=== PATIENT | female | born 1970 | race African-American/Black ===

== ENCOUNTER 2020-01-09 14:47 | Emergency (ER) | payer MEDICARE, MEDICAID ==
[~2020-01-09] VITALS: Ht 180.3 cm; Wt 58.5 kg
[2020-01-09] MEDS ORDERED: PROTONIX20 MG ORAL (15:07)
[2020-01-09] MEDS ORDERED: NORCO 5-325 TA1 EACH ORAL (15:07)
[2020-01-09] MEDS ORDERED: VITAMIN C500 M1 ORAL (15:07)
[2020-01-09] MEDS ORDERED: ONDANSETRON ODT4 MG BC (15:07)
[2020-01-09] MEDS ORDERED: BENADRYL ALLERG25 M1 PO (15:07)
[2020-01-09] MEDS ORDERED: ALBUTEROL0.63 MG/3 HHN (15:07)
[2020-01-09] MEDS ORDERED: COLACE100 MG ORAL (15:07)
[2020-01-09] MEDS ORDERED: MULTIVITAMINS1 EAC8 ORAL (15:07)
[2020-01-09] MEDS ORDERED: MILK OF MA400 MG/51 ORAL (15:07)
[2020-01-09] MEDS ORDERED: FERROUS SULFAT325 MG ORAL (15:07)
[2020-01-09] MEDS ORDERED: TYLENOL EXTRA500 MG ORAL (15:07)
[2020-01-09] MEDS ORDERED: ZINC-220220 MG ORAL (15:07)
[2020-01-09] MEDS ORDERED: SENNA PLUS 8.61 EACH PO (15:07)
[2020-01-09] MEDS ORDERED: ACETAMINOPHEN325 M1 ORAL (15:07)
--- NOTE | 2020-01-09 15:07 | Emergency Room Report ---
History of Present Illness General Chief Complaint: Pain Source: EMS Present Illness HPI 49-year-old female with history of seizures currently controlled, anemia currently controlled, generalized body, and gastric bypass here from assisted assisted living facility brought in by paramedics complaining of generalized body pain. Denies any fall or injury. Reports that the hydrocodone that they gave her at the facility does not help her with pain.. Reports that she has been unable to eat due to worsening acid reflux. Patient is currently on Protonix and Zofran. Also icterus of both eyes noted. Patient reports that she has liver issues does not know which kind. Patient reports that she has history of heavy drinking alcohol. Denies any recent alcohol intake. Denies any recent seizure activity. Denies all other histories. Denies chest pain, shortness of breath, palpitation, headache and dizziness. Complains of generalized ache at this time. Allergies: Coded Allergies: MORPHINE (Verified Allergy, Unknown, 01/09/20) Patient History Past Medical History: see triage record Past Surgical History: none Pertinent Family History: none Now: No Immunizations: UTD Reviewed Nursing Documentation: PMH: Agreed; PSxH: Agreed Nursing Documentation-PMH History Of Psychiatric Problem: Yes - MAJOR DEPRESSIVE DISORDER Review of Systems All Other Systems: negative except mentioned in HPI Physical Exam Vital Signs Date Time Temp Pulse Resp B/P (MAP) Pulse Ox O2 Delivery O2 Flow Rate FiO2 01/09/20 14:50 98.2 82 18 144/91 (108) 96 General Appearance: alert, GCS 15, non-toxic, mild distress Head: normocephalic, atraumatic Eyes: bilateral eye normal inspection, bilateral eye PERRL ENT: hearing grossly normal, normal pharynx, no angioedema, normal voice Neck: full range of motion, supple/symm/no masses Respiratory: chest non-tender, lungs clear, normal breath sounds, no rhonchi, no retraction, no wheezing, speaking full sentences Cardiovascular #1: regular rate, rhythm, no edema, no murmur, normal capillary refill Cardiovascular #2: 2+ carotid (R), 2+ carotid (L), 2+ radial (R), 2+ radial (L) , 2+ dorsalis pedis (R), 2+ dorsalis pedis (L) Gastrointestinal: normal bowel sounds, non tender, soft, non-distended, no guarding, no rebound Rectal: deferred Genitourinary: no CVA tenderness Musculoskeletal: back normal, no calf tenderness, non-tender Neurologic: alert, motor strength/tone normal, oriented, oriented x3, sensory intact, responsive, speech normal Psychiatric: judgement/insight normal, memory normal, mood/affect normal, no suicidal/homicidal ideation Skin: no rash Lymphatic: no adenopathy Medical Decision Making PA Attestation All diagnoses and treatment plans were reviewed and discussed with my supervising physician Dr. Schmid Diagnostic Impression: Primary Impression: Generalized pain Additional Impressions: Intrahepatic bile duct dilation Esophagitis Anemia ER Course 49-year-old female with history of seizures currently controlled, anemia currently controlled, generalized body, and gastric bypass here from assisted assisted living facility brought in by paramedics complaining of generalized body pain. Denies any fall or injury. Reports that the hydrocodone that they gave her at the facility does not help her with pain.. Reports that she has been unable to eat due to worsening acid reflux. Patient is currently on Protonix and Zofran. Also icterus of both eyes noted. Patient reports that she has liver issues does not know which kind. Patient reports that she has history of heavy drinking alcohol. Denies any recent alcohol intake. Denies any recent seizure activity. Denies all other histories. Denies chest pain, shortness of breath, palpitation, headache and dizziness. Complains of generalized ache at this time. Ddx considered but are not limited to: appendicitis, cholecystis, gastritis, gastroenteritis, UTI, pyelonephritis, SBO, diverticulitis, influenza with GI manifestation, ND, complication with gastric bypass, esophagitis, liver cirrhosis, anemia Vital signs: are WNL, pt. is afebrile H&PE are most consistent with: Iron deficiency anemia, generalized pain, intrahepatic bile duct dilation, esophagitis ORDERS: abdominal CT, abdominal pain set, EKG, head CT no contrast ED INTERVENTIONS: 1 mg of Dilaudid, NS bolus, Pepcid, Zofran DISCHARGE: At this time pt. is stable for d/c to home. Will provide printed patient care instructions, and any necessary prescriptions. Care plan and follow up instructions have been discussed with the patient prior to discharge. Take medication as directed, follow-up with your primary care provider, at this time cannot write for more Dilaudid, you need to follow-up with your endocrinology physician and pain management. Also your anemia is controlled as you are taking ferrous sulfate and you had a recent transfusion. If worsening symptoms return to the emergency room. CT/MRI/US Diagnostic Results CT/MRI/US Diagnostic Results #1: Imaging Test Ordered: CT abdomen pelvis with contrast Impression FINDINGS: Lung bases demonstrate no acute infiltrate. Mild dependent atelectasis only. Redemonstrated gastric bypass. The excluded stomach is distended. The wall is thickened, between the fundal region in the gastric body (series 3, image 42). The lumen is distended by gas and inspissated debris. Question bezoar. No perforation. Thickened lower esophagus. Possible esophagitis. Fecal retention suggesting constipation. No small bowel obstruction. Capacious jejunojejunal anastomosis is a common finding after gastric bypass. The appendix is unremarkable. Intrahepatic and extrahepatic biliary dilation. The common bile duct measures 1.3 cm in diameter. No radiopaque intraductal stone. No abdominal aortic aneurysm. Generalized body wall edema. No acute fracture. IMPRESSION: Gastric bypass with distention of the excluded stomach. Wall thickening, between the fundus and gastric body. Inspissated intraluminal debris. Question bezoar area. No perforation. Thickening distal esophagus. Question esophagitis. Fecal retention suggesting constipation. Biliary dilation without radiopaque intraductal stone. CT/MRI/US Diagnostic Results #2: Imaging Test Ordered: head CT no contrast Impression No intracranial bleed, no skull fracture Last Vital Signs Date Time Temp Pulse Resp B/P (MAP) Pulse Ox O2 Delivery O2 Flow Rate FiO2 01/09/20 14:50 98.2 82 18 144/91 (108) 96 Disposition: HOME, SELF-CARE Condition: Stable Patient Instructions: Esophagitis, Iron Deficiency Anemia, Adult Additional Instructions: Follow-up with your primary care provider, take medication as directed, at this time vital signs are within normal limits, anemia appears to be controlled, if worsening symptoms return to the emergency room Helio Arenas Jan 09, 2020 15:07
[2020-01-09] MEDS ORDERED: Omnipaque-300 100ml vial INJ PRN (15:15)
[2020-01-09] MEDS ORDERED: HYDROmorphone 1mg/NS 50ml IVPB 50 ML IVPB ONE (15:15)
--- NOTE | 2020-01-09 15:15 | NUR ---
ED Nurse Note: Pt brought to ED w/ c/o pain. Pt has pain in bilateral arms 7/10, bilateral legs 7/10 for 1 week. Pt has hx of abdominal pain 8/10 fro years due to bypass graft surgery. Pt states she is normally ambulatory, but is weak right now. Pt is alert and orinetedx4, ambulatory w/ assist. Pt is set up on monitor.
[2020-01-09 15:18] VITALS: BP 120/82
[2020-01-09] MEDS ORDERED: HYDROmorphone 1mg/ml Carpuject IVP SCH (15:22)
--- NOTE | 2020-01-09 15:25 | NUR ---
ED Nurse Note: Pt taken to CT.
--- NOTE | 2020-01-09 16:03 | Diagnostic Imaging Report ---
Indication: Headache Technique: Contiguous 5 mm thick transaxial imaging of the head obtained in a Siemens Sensation [address] scanner. Soft tissue and bone windows generated. Automatic Exposure Control was utilized. Total Dose length Product (DLP): 1125.7mGycm CT Dose Index Volume (CTDIvol): 53.4 mGy Comparison: none Findings: The size and configuration of the cortical sulci, basal cisterns, and ventricles are within normal limits for age. There is no mass effect, midline shift, or edema identified. There is no evidence of acute hemorrhage or abnormal intra-axial or extra-axial fluid collections. The bones and soft tissues are unremarkable. Impression: No mass effect, edema or acute bleed. The CT scanner at [facility] is accredited by the [employer] [employer] and the scans are performed using dose optimization techniques as appropriate to a performed exam including Automatic Exposure control.
--- NOTE | 2020-01-09 16:04 | Diagnostic Imaging Report ---
Indication: Dyspnea Comparison: None A single view chest radiograph was obtained. Findings: Cardiomediastinal appearance is within normal limits for age. The lungs are clear. Pulmonary vascularity is appropriate. The diaphragmatic contour is smooth and costophrenic angles are sharp. No pleural effusions are identified. The bones are unremarkable. Impression: No acute findings
[2020-01-09 16:21] LABS: ANION GAP 8 mmol/L (5-15); BLOOD UREA NITROGEN 11 mg/dL (7-18); CALCIUM 8.6 MG/DL (8.5-10.1); CARBON DIOXIDE 25 MMOL/L (21-32); CHLORIDE 108 MMOL/L (98-107); CREATININE 0.6 MG/DL (0.55-1.30); POTASSIUM 3.3 MMOL/L (3.5-5.1); SODIUM 141 MMOL/L (136-145)
[2020-01-09 16:23] LABS: BASOPHILS % (AUTO) 0.8 % (0.0-2.0); EOSINOPHILS % (AUTO) 0.6 % (0.0-3.0); HEMATOCRIT 27.1 % (37.0-47.0); HEMOGLOBIN 8.3 G/DL (12.0-16.0); LYMPHOCYTES % (AUTO) 19.1 % (20.0-45.0); MEAN CORPUSCULAR VOLUME 95 FL (80-99); MONOCYTES % (AUTO) 6.2 % (1.0-10.0); NEUTROPHILS % (AUTO) 73.3 % (45.0-75.0); PLATELET COUNT 191 K/UL (150-450); RED BLOOD COUNT 2.86 M/UL (4.20-5.40); RED CELL DISTRIBUTION WIDTH 18.5 % (11.6-14.8); WHITE BLOOD COUNT 8.4 K/UL (4.8-10.8)
[2020-01-09 16:32] LABS: ALANINE AMINOTRANSFERASE 27 U/L (12-78); ALBUMIN 2.6 G/DL (3.4-5.0); ALBUMIN/GLOBULIN RATIO 0.5 (1.0-2.7); ALKALINE PHOSPHATASE 74 U/L (46-116); ASPARTATE AMINO TRANSFERASE 31 U/L (15-37); BILIRUBIN,TOTAL 0.5 MG/DL (0.2-1.0)
[2020-01-09 17:00] VITALS: BP 125/86
--- NOTE | 2020-01-09 18:24 | Diagnostic Imaging Report ---
EXAM: CT Abdomen and Pelvis With Intravenous Contrast CLINICAL HISTORY: Seizure TECHNIQUE: Axial computed tomography images of the abdomen and pelvis with intravenous contrast. CTDI is 3.2 mGy and DLP is 175.6 mGy-cm. One or more of the following dose reduction techniques were used: automated exposure control, adjustment of the mA and/or kV according to patient size, use of iterative reconstruction technique. COMPARISON: 01/25/10 FINDINGS: Lung bases demonstrate no acute infiltrate. Mild dependent atelectasis only. Redemonstrated gastric bypass. The excluded stomach is distended. The wall is thickened, between the fundal region in the gastric body (series 3, image 42). The lumen is distended by gas and inspissated debris. Question bezoar. No perforation. Thickened lower esophagus. Possible esophagitis. Fecal retention suggesting constipation. No small bowel obstruction. Capacious jejunojejunal anastomosis is a common finding after gastric bypass. The appendix is unremarkable. Intrahepatic and extrahepatic biliary dilation. The common bile duct measures 1.3 cm in diameter. No radiopaque intraductal stone. No abdominal aortic aneurysm. Generalized body wall edema. No acute fracture. IMPRESSION: Gastric bypass with distention of the excluded stomach. Wall thickening, between the fundus and gastric body. Inspissated intraluminal debris. Question bezoar area. No perforation. Thickening distal esophagus. Question esophagitis. Fecal retention suggesting constipation. Biliary dilation without radiopaque intraductal stone.
[2020-01-09 20:24] LABS: APPEARANCE,URINE CLOUDY; BILIRUBIN, URINE NEGATIVE (NEGATIVE); GLUCOSE, URINE (UA) NEGATIVE (NEGATIVE); KETONES,URINE 1+ (NEGATIVE); LEUKOCYTE ESTERASE ,URINE 3+ (NEGATIVE); NITRITE,URINE NEGATIVE (NEGATIVE); PH,URINE 5 (4.5-8.0); PROTEIN,URINE 2+ (NEGATIVE); UROBILINOGEN,URINE 12 MG/DL (0.0-1.0)
[2020-01-09 20:38] LABS: COLOR,URINE YELLOW
[2020-01-09 21:49] VITALS: BP 125/86
--- NOTE | 2020-01-09 21:51 | NUR ---
ED Nurse Note: Patient was transfered back to [facility], via [employer] private transportation # [phone], with all belongings. Patient AAO x4,VSS at this time, skin is warm to touch. Patient was able to ambulate with steady gait.
--- NOTE | 2020-01-09 21:53 | NUR ---
ED Nurse Note: Patient's IV and arm band were taken off without complication.
== END 2020-01-09 21:48 | disposition home or self-care (01) ==
LOC: EDBD 14:47 → EMR 15:05
DX: R52 Pain, unspecified (principal); K20.9 Esophagitis, unspecified; D64.9 Anemia, unspecified; Z88.6 Allergy status to analgesic agent; F32.9 Major depressive disorder, single episode, unspecified; Z98.84 Bariatric surgery status
CPT/HCPCS: 36415; 70450; 71045; 74177; 80053; 80307; 81003; 83880; 84484; 85025; 85610; 85730; 87086; 87181; 93005; 96361; 96374; 96375; 99284; G0480; J1170; J2405; J7030; Q9967; S0028